=== PATIENT | male | born 1990 | race Caucasian/White ===

== ENCOUNTER 2020-07-23 11:12 | Emergency (ER) | payer OTHER ==
[2020-07-23] MEDS ORDERED: KETOROLAC 15 MG/ML VIAL IM STA (11:54)
[2020-07-23] MEDS ORDERED: methocarbamoL 500 MG TABLET PO STA (11:56)
--- NOTE | 2020-07-23 12:00 | ED Physician Documentation ---
PD HPI BACK PAIN - Stated complaint Stated Complaint: LOW BACK PX - Chief complaint Chief Complaint: Back Pain - History obtained from History obtained from: Patient - History of Present Illness Timing - onset: Today Timing - duration: Other Timing - details: Abrupt onset, Intermittant Pain level max: 10 Pain level now: 4 Location: Lower Quality: Spasm, Sharp, Similar to prior episodes, Other (patient had similar pain 1 week ago while working out, then again today. dull constant aching pain in BL lower back with intermittent shooting pain down posterior left leg, worse with walking arund. 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 Review of Systems Constitutional: denies: Fever : denies: Unable to Void, Incontinent Musculoskeletal: reports: Back pain, Extremity pain. denies: Neck pain PD PAST MEDICAL HISTORY - Past Medical History Past Medical History: Yes Cardiovascular: None Respiratory: None Neuro: None GI: None : None HEENT: None Psych: None Musculoskeletal: None Derm: None - Past Surgical History Past Surgical History: No - Present Medications Home Medications: Ambulatory Orders Medication Instructions Recorded Confirmed Ibuprofen 200 mg PO Q8HR PRN 07/23/20 07/23/20 Ibuprofen [Motrin] 600 mg PO Q6H PRN #30 tab 07/23/20 Methocarbamol [Robaxin-750] 750 mg PO Q8HR PRN 10 Days #20 07/23/20 tablet - Allergies Allergies/Adverse Reactions: Allergies Allergy/AdvReac Type Severity Reaction Status Date / Time No Known Drug Allergies Allergy Verified 07/23/20 11:24 - Social History Does the pt smoke?: No Smoking Status: Never smoker Does the pt drink ETOH?: No Does the pt have substance abuse?: No - Immunizations Immunizations are current?: Yes - POLST Patient has POLST: No PD ED PE NORMAL - General General: Alert and oriented X 3 - HEENT HEENT: Atraumatic - Neck Neck: No bony TTP - Back Back: No CVA TTP, Other (lower BL lumbar and sacral mild tenderness to palpation. no midline bony ttp. negative straight legraise) - Extremities Extremities: Normal ROM s pain, No edema, Other (negative straight leg raise. sensorineural intact. normal ROM. pt ambulatory without difficulty) - Neuro Neuro: Alert and oriented X 3 (ambulatory without difficulty) Results - Vitals Vitals: Vital Signs - 24 hr 07/23/20 11:20 Temperature 36.9 C Heart Rate 91 Respiratory 17 Rate Blood Pressure 125/77 O2 Saturation 100 Oxygen O2 Source Room air PD MEDICAL DECISION MAKING - ED course Complexity details: d/w patient ED course: Patient presented to ED with BL lower back pain in muscular distribution sudden onset today while working out, a/w shooting pains down L leg. no midline tend erness, fevers, incontinence, retention or numbness. no traumatic injury. pt was guven toradol and robaxin, counseled on need for modified work schedule and f/u with pcp. return precautions given. Departure - Departure Disposition: 01 Home, Self Care Clinical Impression: Back pain Qualifiers: Back pain location: low back pain Chronicity: acute Back pain laterality: bilateral Sciatica presence: with sciatica Sciatica laterality: sciatica of left side Qualified Code(s): M54.42 - Lumbago with sciatica, left side Condition: Good Instructions: ED Low Back Pain Injury Prescriptions: Methocarbamol [Robaxin-750] 750 mg PO Q8HR PRN 10 Days #20 tablet PRN Reason: pain Ibuprofen [Motrin] 600 mg PO Q6H PRN #30 tab PRN Reason: Pain Comments: [place] DO NOT DRIVE or operate a firearm after taking robaxin since it can have a sedating effect. Return for any worsening of symptoms.
[2020-07-23 12:55] VITALS: BP 128/78
== END 2020-07-23 12:55 | disposition home or self-care (01) ==
LOC: ED 11:12
DX: M54.42 Lumbago with sciatica, left side (principal)
CPT/HCPCS: 96372; 99283; 99284; A9270

== ENCOUNTER 2020-08-22 22:33 | Emergency (ER) | payer OTHER ==
[2020-08-22 22:44] VITALS: BP 134/77
[2020-08-22] MEDS ORDERED: FLUCONAZOLE 100 MG TABLET PO STA (22:59)
--- NOTE | 2020-08-22 23:00 | ED Physician Documentation ---
PD HPI SKIN - Stated complaint Stated Complaint: RT ARM/LEG RASH - Chief complaint Chief Complaint: Ext Problem - History obtained from History obtained from: Patient - History of Present Illness Timing - onset: How many weeks ago (1) Timing - duration: Weeks (1) Timing - details: Gradual onset, Still present Location: RUE, RLE Quality / character: Itchy, Discolored, Raised. 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 He has not otherwise been ill and he is recently gone back to the gym to workout. After injuring his back. He has noted that the rash has increased in size despite the use of the Lamisil. Review of Systems Constitutional: denies: Fever Eyes: denies: Decreased vision Ears: denies: Ear pain Nose: denies: Congestion Throat: denies: Sore throat Respiratory: denies: Cough GI: denies: Vomiting Skin: reports: Rash, Lesions Musculoskeletal: denies: Neck pain, Back pain, Extremity pain Neurologic: denies: Generalized weakness, Focal weakness PD PAST MEDICAL HISTORY - Past Medical History Past Medical History: No Cardiovascular: None Respiratory: None Neuro: None Endocrine/Autoimmune: None GI: None : None HEENT: None Psych: None Musculoskeletal: None Derm: None - Past Surgical History Past Surgical History: No - Present Medications Home Medications: Ambulatory Orders Medication Instructions Recorded Confirmed Ibuprofen 200 mg PO Q8HR PRN 07/23/20 07/23/20 Ibuprofen [Motrin] 600 mg PO Q6H PRN #30 tab 07/23/20 Methocarbamol [Robaxin-750] 750 mg PO Q8HR PRN 10 Days #20 07/23/20 tablet Fluconazole [Diflucan] 200 mg PO OAW #4 tablet 08/22/20 - Allergies Allergies/Adverse Reactions: Allergies Allergy/AdvReac Type Severity Reaction Status Date / Time No Known Drug Allergies Allergy Verified 08/22/20 22:44 - Social History Does the pt smoke?: No Smoking Status: Never smoker Does the pt drink ETOH?: No Does the pt have substance abuse?: No - Immunizations Immunizations are current?: Yes - POLST Patient has POLST: No PD ED PE NORMAL - Vitals Vital signs reviewed: Yes (hypertensive ) - General General: Alert and oriented X 3, No acute distress, Well developed/nourished - HEENT HEENT: Atraumatic, PERRL, EOMI - Respiratory Respiratory: No respiratory distress - Derm Derm: Normal color, Warm and dry, Other (There are erythematous plaques with a raised edge in a circular fashion and surrounding erythema with scaling consistent with ringworm. 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, No motor deficit, No sensory deficit, Normal speech Eye Opening: Spontaneous Motor: Obeys Commands Verbal: Oriented GCS Score: 15 - Psych Psych: Normal mood, Normal affect Results - Vitals Vitals: Vital Signs - 24 hr 08/22/20 08/22/20 08/22/20 22:42 22:53 23:14 Temperature 36.9 C Heart Rate 89 Respiratory 15 15 15 Rate Blood Pressure 134/77 H O2 Saturation 100 08/22/20 23:15 Temperature Heart Rate Respiratory 15 Rate Blood Pressure O2 Saturation Oxygen O2 Source Room air PD MEDICAL DECISION MAKING - ED course Complexity details: reviewed old records, considered differential, d/w patient ED course: 30-year-old male who is been treating what appears to be ringworm with Lamisil has not had success with this treatment. He is administered Diflucan here in the emergency department and instructed to change his antifungal to Tinactin and he is given a prescription for Diflucan 200 mg weekly for 4 weeks. He is given a follow-up with [facility] if he does not have improvement or if he has worsening.His lesions were most consistent with ringworm and he denied being anywhere in a tickborne area in the past several months. He has been mostly confined to his house or his work at the [employer] Departure - Departure Disposition: 01 Home, Self Care Clinical Impression: Tinea corporis Condition: Stable Instructions: ED Infec Skin Fungal Tinea, ED Ringworm Infec Fungal Follow-Up: [facility] [Provider Group] Prescriptions: Fluconazole [Diflucan] 200 mg PO OAW #4 tablet Discharge Date/Time: 08/22/20 23:15
== END 2020-08-22 23:15 | disposition home or self-care (01) ==
LOC: ED 22:33
DX: B35.4 Tinea corporis (principal)
CPT/HCPCS: 99282; 99284; A9270